=== PATIENT | female | born 1995 | race African-American/Black ===

== ENCOUNTER 2019-02-19 14:12 | Emergency (ER) | payer SELFPAY ==
[~2019-02-19] VITALS: Ht 165.1 cm; Wt 58.2 kg
[2019-02-19 14:43] VITALS: Ht 165.1 cm; Wt 58.2 kg
[2019-02-19] MEDS ORDERED: DEBROX OTIC15 ML EACH EAR (16:30)
[2019-02-19 16:49] VITALS: BP 119/73
== END 2019-02-19 16:49 | disposition home or self-care (01) ==
LOC: D.ER 14:12
DX: H61.21 Impacted cerumen, right ear (principal); F17.210 Nicotine dependence, cigarettes, uncomplicated